=== PATIENT | male | born 2000 | race American Indian/Alaskan Native ===

== ENCOUNTER 2022-01-20 17:19 | Emergency (ER) | payer MEDICAID ==
[2022-01-20 19:19] VITALS: BP 135/83
[2022-01-20] MEDS ORDERED: HYDROcodone/ACETAMINOPHEN 5-325 MG TAB PO ONE (23:21)
[2022-01-20] MEDS ORDERED: ALBUTEROL 2.5 MG/3 ML NEBU IH ONE (23:21)
--- NOTE | 2022-01-20 23:47 | XRay Report ---
CHEST 2 VIEWS INDICATION / CLINICAL INFORMATION: chest pain and sob. COMPARISON: 01/01/2019 FINDINGS: SUPPORT DEVICES: None. HEART / MEDIASTINUM: No significant abnormality. LUNGS / PLEURA: No significant pulmonary or pleural abnormality. No pneumothorax. ADDITIONAL FINDINGS: Scoliosis IMPRESSION: 1. No acute findings. Signer Name: Regan Izquierdo MD Signed: 01/20/2022 11:43 PM Workstation Name: [id number]
--- NOTE | 2022-01-21 00:21 | Emergency Department Report ---
Minor Respiratory - HPI Chief Complaint: Fever Stated Complaint: CHEST PAIN/AUTISTIC Time Seen by Provider: 01/20/22 22:25 Duration: 2 Days Pain Location: Chest Severity: mild Minor Respiratory: Yes Rhinorrhea, Yes Cough, Yes Chest Pain, Yes Shortness of Breath, No Sore Throat, No Able to Tolerate Fluids, No Ear Pain, No Sick Contacts, No Hemoptysis, No Fever Other History: Continue medical treatment complaining of 4-day history of cough and congestion with some coryza occasional wheezing and mucus production of unknown etiology he has no known contact with coronavirus [place] He does report some fevers sensation but no hemoptysis no symptoms hematochezia no nausea, no vomiting, no diarrhea ED Review of Systems ROS: Stated complaint: CHEST PAIN/AUTISTIC Other details as noted in HPI ED Past Medical Hx - Past Medical History Additional medical history: autism - Social History Smoking Status: Never Smoker Substance Use Type: None - Medications Home Medications: Home Medications Medication Instructions Recorded Confirmed Last Taken Type Acetaminophen [Non-Aspirin Extra 500 mg PO Q6HR PRN #30 tablet 01/02/19 Unknown Rx Strength] Ibuprofen [Motrin] 600 mg PO Q8H PRN #30 tablet 01/02/19 Unknown Rx Ondansetron [Zofran Odt] 4 mg PO Q8HR PRN #20 tab.rapdis 01/02/19 Unknown Rx Albuterol Mdi (or & Nicu Only) 2 puff IH QID PRN #1 inhalation 01/21/22 Unknown Rx [ProAir HFA Inhaler] predniSONE [Deltasone] 50 mg PO QDAY #5 tab 01/21/22 Unknown Rx Minor Respiratory Exam - Exam General: Vital signs noted. No distress. Alert and acting appropriately. Neurologic: Alert and oriented, no deficits. Musculoskeletal: Unremarkable. ED Course Vital Signs 01/20/22 01/20/22 19:18 23:58 Temperature 98.3 F Pulse Rate 96 H Respiratory 18 18 Rate Blood Pressure 135/83 O2 Sat by Pulse 100 Oximetry Critical care attestation.: If time is entered above; I have spent that time in minutes in the direct care of this critically ill patient, excluding procedure time. ED Disposition Clinical Impression: Bronchitis, Cough Disposition: 01 HOME / SELF CARE / HOMELESS Is pt being admited?: No Does the pt Need Aspirin: No Condition: Stable Instructions: Chronic Bronchitis (ED), Cool Mist Vaporizer, Cough, Adult, How to Use a Metered Dose Inhaler Prescriptions: predniSONE [Deltasone] 50 mg PO QDAY #5 tab Albuterol Mdi (or & Nicu Only) [ProAir HFA Inhaler] 2 puff IH QID PRN #1 inhalation PRN Reason: Shortness Of Breath Referrals: JACQUE MCKEON MD [Staff Physician] - 3-5 Days
--- NOTE | 2022-01-22 21:42 | Electrocardiograph Report ---
[facility] Test Date: 2022-01-20 Test Time: 19:25:46 Pat Name: RAZ MISTRY Department: Room: Gender: M Emt Basic: FARAZ : 2000 Requested By: BAENA RAMIREZ Order Number: [id number] Reading MD: Sailaja Banegas Measurements Intervals [place] Rate: 88 P: 47 [place]: 146 QRS: 87 QRSD: 82 T: 24 QT: 337 QTc: 409 Interpretive Statements Sinus rhythm Probable left atrial enlargement ST elev, probable normal early repol pattern No previous ECG available for comparison Electronically Signed On 01-22-2022 21:41:56 EDT by Sailaja Banegas
== END 2022-01-21 01:09 | disposition home or self-care (01) ==
LOC: ED 17:19
DX: J40 Bronchitis, not specified as acute or chronic (principal); R05.9 Cough, unspecified
CPT/HCPCS: 71046; 93005; 94640; 99283